=== PATIENT | male | born 1990 | race Caucasian/White ===

== ENCOUNTER 2018-03-23 13:30 | Emergency (ER) | payer BC, MEDICAID ==
--- NOTE | 2018-03-23 13:52 | EDM.PDOC ---
ED HPI GENERAL MEDICAL PROBLEM - General Chief Complaint: Respiratory Problem Stated Complaint: BODYACHES, COUGH Time Seen by Provider: 03/23/18 13:48 - History of Present Illness INITIAL COMMENTS - FREE TEXT/NARRATIVE: HISTORY AND PHYSICAL: History of present illness: Patient is 27-year-old white male percent concern of cough body aches over the last several days he denies fever chills nausea vomiting cough has been intermittently productive. Review of systems: As per history of present illness and below otherwise all systems reviewed and negative. Past medical history: As per history of present illness and as reviewed below otherwise noncontributory. Surgical history: As per history of present illness and as reviewed below otherwise noncontributory. Social history: No reported history of drug or alcohol abuse. Family history: As per history of present illness and as reviewed below otherwise noncontributory. Physical exam: HEENT: Atraumatic, normocephalic, pupils reactive, negative for conjunctival pallor or scleral icterus, mucous membranes moist, throat clear, neck supple, nontender, trachea midline. Lungs: Rare end expiratory wheezing no crackles no rhonchi breath sounds equal bilaterally, chest nontender. Heart: S1S2, regular, negative for clicks, rubs, or JVD. Abdomen: Soft, nondistended, nontender. Negative for masses or hepatosplenomegaly. Negative for costovertebral tenderness. Pelvis: Stable nontender. Genitourinary: Deferred. Rectal: Deferred. Extremities: Atraumatic, negative for cords or calf pain. Neurovascular unremarkable. Neuro: Awake, alert, oriented. Cranial nerves II through XII unremarkable. Cerebellum unremarkable. Motor and sensory unremarkable throughout. Exam nonfocal. Diagnostics: Chest x-ray Therapeutics: None Impression: #1 tracheobronchitis Definitive disposition and diagnosis as appropriate pending reevaluation and review of above. body Pain Score (Numeric/FACES): 3 - Related Data Allergies Allergy/AdvReac Type Severity Reaction Status Date / Time No Known Allergies Allergy Verified 03/23/18 13:46 Home Meds: Home Meds . [No Known Home Meds] 03/23/18 [History] ED ROS GENERAL - Review of Systems Review Of Systems: ROS reveals no pertinent complaints other than HPI. ED EXAM, GENERAL - Physical Exam Exam: See Below (See dictation) Course - Vital Signs Last Recorded V/S: Last Vital Signs Temp 36.6 C 03/23/18 13:47 Pulse 95 03/23/18 13:47 Resp 18 03/23/18 13:47 BP 122/78 03/23/18 13:47 Pulse Ox 96 03/23/18 13:47 - Orders/Labs/Meds Orders: Active Orders 24 hr Category Date Time Status Chest 2V [CR] Stat Exams 03/23/18 13:50 Ordered Departure - Departure Time of Disposition: 13:52 Disposition: Home, Self-Care 01 Condition: Good Clinical Impression: Tracheobronchitis - Discharge Information Referrals: PCP,None [Primary Care Provider] - Additional Instructions: The following information is given to patients seen in the emergency department who are being discharged to home. This information is to outline your options for follow-up care. We provide all patients seen in our emergency department with a follow-up referral. The need for follow-up, as well as the timing and circumstances, are variable depending upon the specifics of your emergency department visit. If you don't have a primary care physician on staff, we will provide you with a referral. We always advise you to contact your personal physician following an emergency department visit to inform them of the circumstance of the visit and for follow-up with them and/or the need for any referrals to a consulting specialist. The emergency department will also refer you to a specialist when appropriate. This referral assures that you have the opportunity for followup care with a specialist. All of these measure are taken in an effort to provide you with optimal care, which includes your followup. Under all circumstances we always encourage you to contact your private physician who remains a resource for coordinating your care. When calling for followup care, please make the office aware that this follow-up is from your recent emergency room visit. If for any reason you are refused follow-up, please contact the [facility] emergency department at and asked to speak to the emergency department charge nurse. Albuterol/Augmentin as prescribed follow-up primary medical doctor as needed as discussed return as needed as discussed - My Orders Last 24 Hours: My Active Orders 03/23/18 13:50 Chest 2V [CR] Stat - Assessment/Plan Last 24 Hours: My Active Orders 03/23/18 13:50 Chest 2V [CR] Stat
--- NOTE | 2018-03-23 14:34 | CR ---
EXAMINATION: Two-view chest (PA and Lateral views). HISTORY: Shortness of breath. FINDINGS: The trachea is midline. The cardiomediastinal silhouette is within normal limits. No pulmonary infilt rates, effusions or pneumothorax. Osseous structures appear unremarkable. IMPRESSION: No acute cardiopulmonary process.
== END 2018-03-23 15:30 | disposition home or self-care (01) ==
LOC: MW.ED 13:30
DX: J40 Bronchitis, not specified as acute or chronic (principal)
CPT/HCPCS: 71046; 71046-26; 99283

== ENCOUNTER 2018-04-04 07:49 | Emergency (ER) | payer OTHER, MEDICAID ==
[2018-04-04] MEDS ORDERED: Ketorolac 60 MG/2 ML SDV IM ONE (07:58)
--- NOTE | 2018-04-04 08:01 | EDM.PDOC ---
ED HPI GENERAL MEDICAL PROBLEM - General Chief Complaint: Back Pain or Injury Stated Complaint: LOWER BACK PAIN Time Seen by Provider: 04/04/18 07:54 - History of Present Illness INITIAL COMMENTS - FREE TEXT/NARRATIVE: HISTORY AND PHYSICAL: History of present illness: Patient is a 27-year-old white male presents with concern of left lower back pain that occurred when he was lifting a trash bin while at work he denies a tremor concern he had no incontinence or retention of bowel bladder no numbness no weakness he denies any other concern Review of systems: As per history of present illness and below otherwise all systems reviewed and negative. Past medical history: As per history of present illness and as reviewed below otherwise noncontributory. Surgical history: As per history of present illness and as reviewed below otherwise noncontributory. Social history: No reported history of drug or alcohol abuse. Family history: As per history of present illness and as reviewed below otherwise noncontributory. Physical exam: HEENT: Atraumatic, normocephalic, pupils reactive, negative for conjunctival pallor or scleral icterus, mucous membranes moist, throat clear, neck supple, nontender, trachea midline. Lungs: Clear to auscultation, breath sounds equal bilaterally, chest nontender. Heart: S1S2, regular, negative for clicks, rubs, or JVD. Abdomen: Soft, nondistended, nontender. Negative for masses or hepatosplenomegaly. Negative for costovertebral tenderness. Pelvis: Stable nontender. Genitourinary: Deferred. Rectal: Deferred. Extremities: Atraumatic, negative for cords or calf pain. Neurovascular unremarkable. Neuro: Awake, alert, oriented. Cranial nerves II through XII unremarkable. Cerebellum unremarkable. Motor and sensory unremarkable throughout. Exam nonfocal. Back: Patient has mild paravertebral tenderness at the level lumbar spine on the left side is no vertebral body or point tenderness patient is able to stand on his toes back on his heels deep tendon reflexes are normal motor and sensory are normal Diagnostics: None Therapeutics: Toradol 60 mg IM Impression: #1 low back pain probable lumbar strain Definitive disposition and diagnosis as appropriate pending reevaluation and review of above. Lower Back Pain Score (Numeric/FACES): 7 - Related Data Allergies Allergy/AdvReac Type Severity Reaction Status Date / Time No Known Allergies Allergy Verified 04/04/18 07:59 Home Meds: Home Meds . [No Known Home Meds] 03/23/18 [History] Past Medical History - Past Health History Medical/Surgical History: Denies Medical/Surgical History Social & Family History - Family History Family Medical History: Noncontributory - Caffeine Use Caffeine Use: Reports: Coffee, Soda ED ROS GENERAL - Review of Systems Review Of Systems: ROS reveals no pertinent complaints other than HPI. ED EXAM, GENERAL - Physical Exam Exam: See Below (dictation) Course - Vital Signs Last Recorded V/S: Last Vital Signs Temp 36.6 C 04/04/18 07:57 Pulse 83 04/04/18 07:57 Resp 18 04/04/18 07:57 BP 142/95 H 04/04/18 07:57 Pulse Ox 95 04/04/18 07:57 - Orders/Labs/Meds Meds: Medications Discontinued Medications Generic Name Dose Route Start Last Admin Trade Name Freq PRN Reason Stop Dose Admin Ketorolac Tromethamine 60 mg 04/04/18 07:58 Toradol IM 04/04/18 07:59 ONETIME ONE Departure - Departure Time of Disposition: 08:01 Disposition: Home, Self-Care 01 Preliminary Cause of *Q: Sepsis & Multi System Organ Failure Clinical Impression: Lumbar strain - Discharge Information Referrals: PCP,None [Primary Care Provider] - Additional Instructions: The following information is given to patients seen in the emergency department who are being discharged to home. This information is to outline your options for follow-up care. We provide all patients seen in our emergency department with a follow-up referral. The need for follow-up, as well as the timing and circumstances, are variable depending upon the specifics of your emergency department visit. If you don't have a primary care physician on staff, we will provide you with a referral. We always advise you to contact your personal physician following an emergency department visit to inform them of the circumstance of the visit and for follow-up with them and/or the need for any referrals to a consulting specialist. The emergency department will also refer you to a specialist when appropriate. This referral assures that you have the opportunity for followup care with a specialist. All of these measure are taken in an effort to provide you with optimal care, which includes your followup. Under all circumstances we always encourage you to contact your private physician who remains a resource for coordinating your care. When calling for followup care, please make the office aware that this follow-up is from your recent emergency room visit. If for any reason you are refused follow-up, please contact the [facility] emergency department at and asked to speak to the emergency department charge nurse. Motrin/Robaxin as prescribed follow-up primary medical doctor off work 48 hours return as needed as discussed[]
== END 2018-04-04 08:25 | disposition home or self-care (01) ==
LOC: MW.ED 07:49
DX: S39.012A Strain of muscle, fascia and tendon of lower back, initial encounter (principal); X50.0XXA Overexertion from strenuous movement or load, initial encounter
CPT/HCPCS: 96372; 99283; J1885

== ENCOUNTER 2019-12-05 11:56 | Emergency (ER) | payer MEDICAID, OTHER ==
--- NOTE | 2019-12-05 12:15 | EDM.PDOC ---
ED HPI GENERAL MEDICAL PROBLEM - General Chief Complaint: Upper Extremity Injury/Pain Stated Complaint: INJURED RIGHT ARM Time Seen by Provider: 12/05/19 12:14 Source of Information: Reports: Patient - History of Present Illness INITIAL COMMENTS - FREE TEXT/NARRATIVE: HISTORY AND PHYSICAL: History of present illness: [patient presents after striking right mid shaft humerus on the top of a metal post yesterday, he has contusion/bruising consistant with such over bicep , 2.5 " diameter, shoulder and elbow unaffected, entire limb neurovacular intact, no open lesion no redness/warmth ] Review of systems: As per history of present illness and below otherwise all systems reviewed and negative. Past medical history: As per history of present illness and as reviewed below otherwise noncontributory. Surgical history: As per history of present illness and as reviewed below otherwise noncontributory. Social history: No reported history of drug or alcohol abuse. Family history: As per history of present illness and as reviewed below otherwise noncontributory. Physical exam: HEENT: Atraumatic, normocephalic, pupils reactive, negative for conjunctival pallor or scleral icterus, mucous membranes moist, throat clear, neck supple, nontender, trachea midline. Lungs: Clear to auscultation, breath sounds equal bilaterally, chest nontender. Heart: S1S2, regular, negative for clicks, rubs, or JVD. Abdomen: Soft, nondistended, nontender. Negative for masses or hepatosplenomegaly. Negative for costovertebral tenderness. Pelvis: Stable nontender. Genitourinary: Deferred. Rectal: Deferred. Extremities: Atraumatic, negative for cords or calf pain. Neurovascular unremarkable. Neuro: Awake, alert, oriented. Cranial nerves II through XII unremarkable. Cerebellum unremarkable. Motor and sensory unremarkable throughout. Exam nonfocal. Diagnostics: [humerus Right ] Therapeutics: [ice /ibu ] Impression: [contusion, right bicep] Definitive disposition and diagnosis as appropriate pending reevaluation and review of above. right bicep Pain Score (Numeric/FACES): 5 - Related Data Allergies Allergy/AdvReac Type Severity Reaction Status Date / Time No Known Allergies Allergy Verified 04/04/18 07:59 Home Meds: Home Meds . [No Known Home Meds] 03/23/18 [History] Past Medical History - Past Health History Medical/Surgical History: Denies Medical/Surgical History Social & Family History - Family History Family Medical History: Noncontributory - Caffeine Use Caffeine Use: Reports: Coffee, Soda Review of Systems - Review of Systems Review Of Systems: See Below ED EXAM, GENERAL - Physical Exam Exam: See Below Course - Vital Signs Last Recorded V/S: Last Vital Signs Temp 97.7 F 12/05/19 12:10 Pulse 82 12/05/19 12:10 Resp 18 12/05/19 12:10 BP 143/84 H 12/05/19 12:10 Pulse Ox 96 12/05/19 12:10 - Orders/Labs/Meds Orders: Active Orders 24 hr Category Date Time Status Humerus Rt [CR] Stat Exams 12/05/19 12:13 Taken Departure - Departure Time of Disposition: 13:00 Disposition: Home, Self-Care 01 Condition: Good Clinical Impression: Contusion - Discharge Information Referrals: PCP,None [Primary Care Provider] - Forms: ED Department Discharge Additional Instructions: The following information is given to patients seen in the emergency department who are being discharged to home. This information is to outline your options for follow-up care. We provide all patients seen in our emergency department with a follow-up referral. The need for follow-up, as well as the timing and circumstances, are variable depending upon the specifics of your emergency department visit. If you don't have a primary care physician on staff, we will provide you with a referral. We always advise you to contact your personal physician following an emergency department visit to inform them of the circumstance of the visit and for follow-up with them and/or the need for any referrals to a consulting specialist. The emergency department will also refer you to a specialist when appropriate. This referral assures that you have the opportunity for follow-up care with a specialist. All of these measure are taken in an effort to provide you with optimal care, which includes your follow-up. Under all circumstances we always encourage you to contact your private physician who remains a resource for coordinating your care. When calling for follow-up care, please make the office aware that this follow-up is from your recent emergency room visit. If for any reason you are refused follow-up, please contact the [facility] emergency department at and asked to speak to the emergency department charge nurse. . Sepsis Event Note - Evaluation Sepsis Screening Result: No Definite Risk - Focused Exam Vital Signs: Vital Signs Temp Pulse Resp BP Pulse Ox 12/05/19 12:10 97.7 F 82 18 143/84 H 96 Date Exam was Performed: 12/05/19 Time Exam was Performed: 13:00 - My Orders Last 24 Hours: My Active Orders 12/05/19 12:13 Humerus Rt [CR] Stat - Assessment/Plan Last 24 Hours: My Active Orders 12/05/19 12:13 Humerus Rt [CR] Stat
--- NOTE | 2019-12-05 13:03 | CR ---
Right humerus: 2 views of the right humerus were obtained. Comparison: No prior humerus exam. No fracture or other abnormality is appreciated. Impression: 1. No abnormality is appreciated on 2 view right humerus study. Diagnostic code #1 This report was dictated in [place] Standard Time
== END 2019-12-05 13:15 | disposition home or self-care (01) ==
LOC: MW.ED 11:56
DX: S40.021A Contusion of right upper arm, initial encounter (principal); W22.8XXA Striking against or struck by other objects, initial encounter
CPT/HCPCS: 73060-26-RT; 73060-RT; 99282; 99283-25

== ENCOUNTER 2023-08-30 06:43 | Day surgery (SDC) | payer BC, OTHER ==
[2023-08-30] MEDS ORDERED: Lactated Ringers 1,000 ML IV SCH ×2 (07:00→08:45)
[2023-08-30] MEDS ORDERED: propofoL 50 ML ONE (07:28)
[2023-08-30] MEDS ORDERED: Dexmedetomidine 200 MCG/2 ML SDV ONE (07:32)
== END 2023-08-30 09:04 | disposition home or self-care (01) ==
LOC: MW.SDS 06:43
PROVIDERS: ATTEND Surgery
DX: K52.9 Noninfective gastroenteritis and colitis, unspecified (principal); K63.89 Other specified diseases of intestine; K57.32 Diverticulitis of large intestine without perforation or abscess without bleeding; J45.909 Unspecified asthma, uncomplicated; E66.9 Obesity, unspecified; F17.220 Nicotine dependence, chewing tobacco, uncomplicated; Z79.899 Other long term (current) drug therapy; Z86.16 Personal history of COVID-19
CPT/HCPCS: 45380; J2704; J7120; J3490

== ENCOUNTER 2023-09-27 06:33 | Day surgery (SDC) | payer BC ==
[~2023-09-27 06:33] MED LIST: Lactated Ringers 1,000 ML IV SCH
[2023-09-27] MEDS ORDERED: Lidocaine 2% 5 ML SDV ONE (07:19)
[2023-09-27] MEDS ORDERED: propofoL 50 ML ONE (07:20)
[2023-09-27] MEDS ORDERED: dexmedeTOMIDine HCl 200 MCG/2 ML SDV ONE (07:21)
[2023-09-27] MEDS ORDERED: Water For Injection, Sterile 20 ML ONE (07:21)
[2023-09-27] MEDS ORDERED: Ketamine 500 mg/10 ML MDV ONE (07:26)
[2023-09-27] MEDS ORDERED: Lactated Ringers 1,000 ML IV SCH (08:15)
== END 2023-09-27 09:35 | disposition home or self-care (01) ==
LOC: MW.SDS 06:33
PROVIDERS: ATTEND Surgery
DX: K29.50 Unspecified chronic gastritis without bleeding (principal); K21.00 Gastro-esophageal reflux disease with esophagitis, without bleeding; K31.89 Other diseases of stomach and duodenum; K52.3 Indeterminate colitis; J45.909 Unspecified asthma, uncomplicated; E66.9 Obesity, unspecified; Z68.35 Body mass index [BMI] 35.0-35.9, adult; F17.290 Nicotine dependence, other tobacco product, uncomplicated; Z79.899 Other long term (current) drug therapy
CPT/HCPCS: 43239; J2704; J3490; J7120

== ENCOUNTER 2023-12-07 10:08 | Day surgery (SDC) | payer SELFPAY ==
[2023-12-07 11:50] LABS: BASOPHILS ABSOLUTE AUTO 0.02 K/uL (0.00-0.20); BASOPHILS PERCENT AUTO 0.2 % (0.0-1.0); EOSINOPHILS ABSOLUTE AUTO 0.01 K/uL (0.00-0.45); EOSINOPHILS PERCENT AUTO 0.1 % (0.0-6.0); HEMATOCRIT 41.5 % (42.0-52.0); HEMOGLOBIN 14.5 g/dL (14.0-18.0); IMMATURE GRAN ABSOLUTE AUTO 0.04 K/uL (0.00-0.05); IMMATURE GRAN PERCENT AUTO 0.3 % (0.0-0.4); LYMPHOCYTES ABSOLUTE AUTO 2.32 K/uL (1.00-4.80); LYMPHOCYTES PERCENT AUTO 18.9 % (24.0-44.0); MEAN CORPUSCULAR HEMOGLOBIN 32.2 pg (28.0-32.0); MEAN CORPUSCULAR HGB CONC 34.9 g/dL (32.0-36.0); MEAN CORPUSCULAR VOLUME 92.2 fL (83.0-99.0); MEAN PLATELET VOLUME 10.5 fL (9.4-12.4); MONOCYTES ABSOLUTE AUTO 0.99 K/uL (0.00-0.80); MONOCYTES PERCENT AUTO 8.1 % (0.0-8.0); NEUTROPHILS ABSOLUTE AUTO 8.88 K/uL (1.80-7.70); NEUTROPHILS PERCENT AUTO 72.4 % (41.0-71.0); PLATELET COUNT,PLT 385 K/uL (150-400); WHITE BLOOD CELL COUNT,WBC 12.26 K/uL (3.9-11.3)
[2023-12-07 12:15] LABS: A/G RATIO 0.9 (0.9-1.6); ALBUMIN 3.5 g/dL (3.4-5.0); BILIRUBIN TOTAL 0.4 mg/dL (0.2-1.0); CALCIUM 8.8 mg/dL (8.5-10.1); CARBON DIOXIDE,CO2 23.7 mmol/L (21.0-32.0); EST CRCL DRUG DOSING (CG) 103.1 mL/min; POTASSIUM,K 3.7 mmol/L (3.5-5.1); PROTEIN TOTAL,TP 7.6 g/dL (6.4-8.2)
[2023-12-07] MEDS: Ondansetron 4 MG/2 ML SDV ONE (12:18)
[2023-12-07] MEDS: HYDROmorphone 1 MG/ML Syringe ONE (12:18)
[2023-12-07] MEDS: HYDROmorphone 2 MG/ML Syringe IVPUSH ONE ×3 (12:34→15:18)
[2023-12-07] MEDS: Ondansetron 4 MG/2 ML SDV IVPUSH ONE (12:35)
[2023-12-07] MEDS: Sodium Chloride 0.9% 1,000 ML IV ONE (12:35)
[2023-12-07] MEDS: Iopamidol 755 MG/ML 500 ML Multipack Bottle IVPUSH STA (12:50)
[2023-12-07] MEDS: Ketorolac 30 MG/ML SDV IVPUSH ONE (15:25)
[2023-12-07] MEDS: Ampicillin/Sulbactam Na 3 GM in Sodium Chloride 0.9% 100 ML IV ONE (15:28)
[2023-12-07] MEDS ORDERED: Lactated Ringers 1,000 ML IV SCH ×2 (16:15→17:30)
[2023-12-07] MEDS ORDERED: Propofol 200 MG/20 ML SDV ONE (16:26)
[2023-12-07] MEDS ORDERED: fentaNYL 250 MCG/5 ML SDV ONE ×2 (16:26→16:50)
[2023-12-07] MEDS ORDERED: Albuterol 8 GM Inhaler ONE (16:30)
[2023-12-07] MEDS ORDERED: Ketorolac 30 MG/ML SDV ONE (16:42)
[2023-12-07] MEDS ORDERED: Ondansetron 4 MG/2 ML SDV ONE (16:42)
[2023-12-07] MEDS ORDERED: Dexamethasone 4 MG/ML 5 ML MDV ONE (16:42)
[2023-12-07] MEDS ORDERED: Acetaminophen/HYDROcodone 325-5 MG Tab PO PRN ×2 (17:26→17:38)
[2023-12-07] MEDS ORDERED: Morphine 2 MG/ML SYRINGE IVPUSH PRN (17:26)
[2023-12-07] MEDS ORDERED: HYDROmorphone 1 MG/ML Syringe ONE (17:36)
== END 2023-12-07 19:23 | disposition home or self-care (01) ==
LOC: MW.ED 10:08 → MW.SDS 16:03 → MW.MS 18:05 → MW.SDS 19:23
PROVIDERS: ATTEND Surgery
DX: K61.0 Anal abscess (principal); J45.909 Unspecified asthma, uncomplicated; K21.9 Gastro-esophageal reflux disease without esophagitis; E66.9 Obesity, unspecified; Z68.33 Body mass index [BMI] 33.0-33.9, adult; Z79.899 Other long term (current) drug therapy
CPT/HCPCS: 36415; 46050; 74177; 80053; 85025; 87070; 87075; 87205; A9270; J0131; J0295; J1100; J1170; J1885; J2405; J2704; J3010; J3490; J7030; Q9967; 99285

== ENCOUNTER 2024-05-05 21:16 | Emergency (ER) | payer SELFPAY ==
[2024-05-05] MEDS: Diphtheria,Pertussis(Acell),Tetanus Vaccine 0.5 ML Syringe IM ONE (23:00)
== END 2024-05-05 23:06 | disposition home or self-care (01) ==
LOC: MW.ED 21:16
DX: S92.414A Nondisplaced fracture of proximal phalanx of right great toe, initial encounter for closed fracture (principal); I10 Essential (primary) hypertension; J45.909 Unspecified asthma, uncomplicated; E66.9 Obesity, unspecified; Z68.34 Body mass index [BMI] 34.0-34.9, adult; Z23 Encounter for immunization; Z88.8 Allergy status to other drugs, medicaments and biological substances; W10.1XXA Fall (on)(from) sidewalk curb, initial encounter
CPT/HCPCS: 73630-26-RT; 73630-RT; 90471; 90715; 99283-25

== ENCOUNTER 2024-08-17 21:09 | Emergency (ER) | payer SELFPAY ==
[2024-08-17 22:24] LABS: BASOPHILS ABSOLUTE AUTO 0.04 K/uL (0.00-0.20); BASOPHILS PERCENT AUTO 0.4 % (0.0-1.0); EOSINOPHILS ABSOLUTE AUTO 0.01 K/uL (0.00-0.45); EOSINOPHILS PERCENT AUTO 0.1 % (0.0-6.0); HEMATOCRIT 43.2 % (42.0-52.0); HEMOGLOBIN 14.6 g/dL (14.0-18.0); IMMATURE GRAN ABSOLUTE AUTO 0.04 K/uL (0.00-0.05); IMMATURE GRAN PERCENT AUTO 0.4 % (0.0-0.4); LYMPHOCYTES ABSOLUTE AUTO 2.74 K/uL (1.00-4.80); LYMPHOCYTES PERCENT AUTO 26.7 % (24.0-44.0); MEAN CORPUSCULAR HEMOGLOBIN 31.5 pg (28.0-32.0); MEAN CORPUSCULAR HGB CONC 33.8 g/dL (32.0-36.0); MEAN CORPUSCULAR VOLUME 93.3 fL (83.0-99.0); MEAN PLATELET VOLUME 10.3 fL (9.4-12.4); MONOCYTES ABSOLUTE AUTO 0.85 K/uL (0.00-0.80); MONOCYTES PERCENT AUTO 8.3 % (0.0-8.0); NEUTROPHILS ABSOLUTE AUTO 6.58 K/uL (1.80-7.70); NEUTROPHILS PERCENT AUTO 64.1 % (41.0-71.0); PLATELET COUNT,PLT 272 K/uL (150-400); RED BLOOD CELL COUNT 4.63 M/uL (4.52-5.90); WHITE BLOOD CELL COUNT,WBC 10.26 K/uL (3.9-11.3)
[2024-08-17 22:57] LABS: ALANINE AMINOTRANSFERASE,ALT 63 IU/L (14-63); ALBUMIN 3.6 g/dL (3.4-5.0); ALKALINE PHOSPHATASE 100 U/L (46-116); ASPARTATE AMNIOTRANSFERASE,AST 33 IU/L (15-37); BILIRUBIN TOTAL 0.3 mg/dL (0.2-1.0); BLOOD UREA NITROGEN,BUN 9 mg/dL (7.0-18.0); CALCIUM 8.6 mg/dL (8.5-10.1); CARBON DIOXIDE,CO2 27.4 mmol/L (21.0-32.0); CHLORIDE,CL 104 mmol/L (98-107); CREATININE 1.1 mg/dL (0.8-1.3); EST CRCL DRUG DOSING (CG) 66.29 mL/min; ESTIMATED GFR 90 mL/min (>60); GLUCOSE RANDOM 127 mg/dL (74-106); LIPASE 22 U/L (16-77); POTASSIUM,K 3.8 mmol/L (3.5-5.1); PROTEIN TOTAL,TP 7.3 g/dL (6.4-8.2); SODIUM,NA 142 mmol/L (136-148)
[2024-08-17 23:49] LABS: T4 FREE 0.79 ng/dL (0.76-1.46)
== END 2024-08-17 23:20 | disposition home or self-care (01) ==
LOC: MW.ED 21:09
DX: R00.2 Palpitations (principal); I10 Essential (primary) hypertension; F17.210 Nicotine dependence, cigarettes, uncomplicated; E66.9 Obesity, unspecified; Z86.16 Personal history of COVID-19; Z88.8 Allergy status to other drugs, medicaments and biological substances; Z68.42 Body mass index [BMI] 45.0-49.9, adult
CPT/HCPCS: 36415; 80053; 83690; 84439; 84443; 84484; 85025; 93005; 99285

== ENCOUNTER 2025-07-11 00:09 | Emergency (ER) | payer BC ==
[2025-07-11] MEDS: Amoxicillin/Clavulanate K 875-125 MG Tab PO ONE (01:15)
[2025-07-11] MEDS: Acetaminophen/HYDROcodone 325-10 MG Tab PO STA (01:15)
== END 2025-07-11 03:49 | disposition home or self-care (01) ==
LOC: MW.ED 00:09
DX: K04.7 Periapical abscess without sinus (principal); K02.9 Dental caries, unspecified
CPT/HCPCS: 64400; 99282; A9270; 99284